=== PATIENT | female | born 1985 | race Caucasian/White ===

== ENCOUNTER 2019-12-23 16:06 | Emergency (ER) | payer BC ==
[~2019-12-23] VITALS: Ht 157.5 cm; Wt 65.9 kg
[~2019-12-23 16:06] MED LIST: VALTREX 50500 MG/TAB PO
[2019-12-23 16:14] VITALS: TEMP 99
[2019-12-23 17:32] LABS: BASO # 0.1 (0.0-0.2); BASO % 0.6 % (0.0-2.0); EOS # 0.1 (0.0-0.7); EOS % 0.8 % (0-4.0); GRAN # 7.2 (1.4-6.5); GRAN % 74.2 % (42.2-75.2); HEMATOCRIT 38.9 % (37.0-47.0); HEMOGLOBIN 13.5 g/dl (12.5-16.0); LYMPH # 1.8 (1.2-3.4); LYMPH % 18.7 % (20.0-51.0); MEAN CELL VOLUME 92 fl (80.0-100.0); MEAN CORPUSCULAR HEMOGLOBIN 32 pg (27.0-31.0); MEAN CORPUSCULAR HGB CONC 35 g/dl (33.0-37.0); MONO # 0.5 (0.1-0.6); MONO % 5.3 % (1.7-9.3); PLATELET COUNT 261 K/mm3 (130-400); RED BLOOD COUNT 4.22 M/mm3 (4.10-5.30); REDCELL DISTRIBUTION WIDTH-CV 13.3 % (11.5-14.5)
[2019-12-23 17:42] LABS: ALBUMIN 4.7 gm/dL (3.5-5.0); BILIRUBIN,TOTAL 0.4 mg/dL (0.0-1.0); CALCIUM 9.7 mg/dL (8.4-10.2); CREATININE, serum 0.8 (0.52-1.25); POTASSIUM 4.1 mmol/L (3.4-5.0); TOTAL PROTEIN 7.8 gm/dL (6.4-8.2)
[2019-12-23 18:20] VITALS: BP 118/84; PULSE 93
== END 2019-12-23 18:20 | disposition home or self-care (01) ==
LOC: COL.ER 16:06
PROVIDERS: Physician Assistant
DX: B34.9 Viral infection, unspecified (principal); J20.9 Acute bronchitis, unspecified; F17.210 Nicotine dependence, cigarettes, uncomplicated; Z20.828 Contact with and (suspected) exposure to other viral communicable diseases